=== PATIENT | female | born 1965 | race Caucasian/White ===

== ENCOUNTER 2016-07-26 03:12 | Emergency (ER) | payer MEDICAID ==
[~2016-07-26] VITALS: Ht 160 cm; Wt 87.5 kg
[2016-07-26 03:33] VITALS: BP 170/75
== END 2016-07-26 06:09 | disposition left against medical advice (07) ==
LOC: ER 03:12
DX: Z53.21 Procedure and treatment not carried out due to patient leaving prior to being seen by health care provider (principal)

== ENCOUNTER 2016-09-23 17:17 | Emergency (ER) | payer MEDICAID ==
[~2016-09-23] VITALS: Ht 160 cm; Wt 91.0 kg
[2016-09-23 17:25] VITALS: BP 167/84
== END 2016-09-24 01:15 | disposition left against medical advice (07) ==
LOC: ER 17:17
DX: Z53.21 Procedure and treatment not carried out due to patient leaving prior to being seen by health care provider (principal)

== ENCOUNTER 2017-07-05 20:49 | Emergency (ER) | payer MEDICAID ==
[~2017-07-05] VITALS: Ht 162.6 cm; Wt 78.0 kg
[2017-07-05 22:04] VITALS: BP 142/81
== END 2017-07-06 | disposition left against medical advice (07) ==
LOC: ER 22:23
DX: M79.1 Myalgia (principal); Z53.21 Procedure and treatment not carried out due to patient leaving prior to being seen by health care provider

== ENCOUNTER 2017-07-06 04:16 | Emergency (ER) | payer MEDICAID ==
[~2017-07-06] VITALS: Ht 162.6 cm; Wt 78.0 kg
[2017-07-06] MEDS ORDERED: IBUPROFEN 800MG TABLET PO ONE (07:15)
[2017-07-06 09:05] VITALS: BP 147/72
== END 2017-07-06 10:25 | disposition home or self-care (01) ==
LOC: ER 08:20
DX: S63.502A Unspecified sprain of left wrist, initial encounter (principal); S43.401A Unspecified sprain of right shoulder joint, initial encounter; S83.91XA Sprain of unspecified site of right knee, initial encounter; J45.909 Unspecified asthma, uncomplicated; W01.0XXA Fall on same level from slipping, tripping and stumbling without subsequent striking against object, initial encounter; Y93.89 Activity, other specified; Y92.480 Sidewalk as the place of occurrence of the external cause; Y99.8 Other external cause status
CPT/HCPCS: 73030; 73110; 73562; 99284

== ENCOUNTER 2017-07-13 02:49 | Emergency (ER) | payer MEDICAID ==
[~2017-07-13] VITALS: Ht 162.6 cm; Wt 80.0 kg
[2017-07-13] MEDS ORDERED: IBUPROFEN 600MG TABLET PO ONE (05:30)
[2017-07-13] MEDS ORDERED: ACETAMINOPHEN 325MG TABLET PO ONE (05:30)
[2017-07-13 06:45] VITALS: BP 154/61
== END 2017-07-13 08:16 | disposition home or self-care (01) ==
LOC: ER 02:49
DX: M25.512 Pain in left shoulder (principal); M25.561 Pain in right knee; F17.200 Nicotine dependence, unspecified, uncomplicated; J45.909 Unspecified asthma, uncomplicated
CPT/HCPCS: 99283; L1830